=== PATIENT | female | born 1960 | race Caucasian/White ===

== ENCOUNTER 2019-02-19 11:44 | Emergency (ER) | payer OTHER ==
[2019-02-19 12:31] VITALS: BP 108/65
--- NOTE | 2019-02-19 12:42 | UC ---
UC General HPI - HPI Summary HPI Summary: per triage, Urinary urgency, burning and mild lower back pain started . [ End ] no fever, abdominal pain or flank pain. hx uti's with same s/s's. - History of Current Complaint Chief Complaint: UCGU Stated Complaint: URINARY CONCERN Time Seen by Provider: 02/19/19 12:23 Hx Obtained From: Patient Hx Last Menstrual Period: N/A Onset/Duration: Gradual Onset Pain Intensity: 0 - Allergy/Home Medications Allergies/Adverse Reactions: Allergies Allergy/AdvReac Type Severity Reaction Status Date / Time Penicillins AdvReac Intermediate Rash Verified 02/19/19 12:26 PMH/Surg Hx/FS Hx/Imm Hx - Additional Past Medical History Additional PMH: OA - Surgical History Surgical History: Yes Surgery Procedure, Year, and Place: VAGINA RECONSTRUCTION AND OVARIES REMOVED. BLADDER SLING. RECTAL PROLAPSE CORRECTION - Family History Known Family History: Positive: None - Social History Alcohol Use: Occasionally Alcohol Amount: 3-5 drinks Substance Use Type: None Smoking Status (MU): Never Smoked Tobacco - Immunization History Most Recent Tetanus Shot: unsure Review of Systems All Other Systems Reviewed And Are Negative: Yes Constitutional: Negative: Fever Gastrointestinal: Negative: Abdominal Pain, Vomiting, Diarrhea, Nausea Genitourinary: Positive: Dysuria, Hematuria, Frequency, Urgency. Negative: Vaginal/Penile Discharge Physical Exam Triage Information Reviewed: Yes Appearance: Well-Appearing Vital Signs: Initial Vital Signs Temp 99.5 F 02/19/19 12:26 Pulse 78 02/19/19 12:26 Resp 14 02/19/19 12:26 BP 108/65 02/19/19 12:26 Pulse Ox 99 02/19/19 12:26 Vital Signs Reviewed: Yes Eyes: Positive: Conjunctiva Clear Neck: Positive: Supple Respiratory: Positive: Lungs clear Cardiovascular: Positive: RRR Abdomen Description: Positive: Nontender, No Organomegaly, Soft. Negative: CVA Tenderness (R), CVA Tenderness (L) Bowel Sounds: Positive: Present Musculoskeletal: Positive: ROM Intact Neurological: Positive: Alert Psychological: Positive: Age Appropriate Behavior Skin Exam: Normal Diagnostics - Laboratory Lab Results: u/a=protein, blood, leukocytes with culture pending. Course/Dx - Diagnoses Provider Diagnosis: UTI (urinary tract infection) Discharge - Sign-Out/Discharge Documenting (check all that apply): Patient Departure All imaging exams completed and their final reports reviewed: No Studies - Discharge Plan Condition: Stable Disposition: HOME Prescriptions: Nitrofurantoin Monohyd/M-Cryst [Macrobid 100 mg Capsule] 100 mg PO BID 5 Days # 10 cap Patient Education Materials: Urinary Tract Infection in Women (ED) Referrals: Delonte DEAN,Jai Hardy [Primary Care Provider] - 7 Days - Billing Disposition and Condition Condition: STABLE Disposition: Home
--- OUTSIDE RECORDS SUMMARY | 2019-02-19 12:59 | XMS REPORT | Continuity of Care Document ---
:1960 External Reference #:[id number] Author Name Margret Lugo MD Address [address] [place] [address] Care Team Providers Name Role Phone Jai Martel MD Primary Care Physician Unavailable Payers Date Identification Numbers Payment Provider Subscriber Policy Number: [id number] Magdy Worthington Group Number: [id number] PayID: [id number] [place] [address] Problems Active Problems Provider Date Difficulty breathing Jessica Oh MD Onset: 02/01/2017 Obstructive sleep apnea syndrome Tara Packer DNP, RN, Onset: 03/15/2017 DEAL[employer]ATION[employer]IP [employer]NAGER[employer] Hypersomnia Tara Packer DNP, RN, Onset: 03/15/2017 [employer]ATION[employer]IP [employer]GER[employer] Localized, primary osteoarthritis Carey Montague M.D. Onset: 02/26/2018 Localized, primary osteoarthritis of Carey Montague M.D. 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 Tobacco Use Start: Unknown Never Smoked Cigarettes Smoking Status Reviewed: 12/10/18 Never Smoked Cigarettes ETOH Use Currently consumes socially alcohol Tobacco Use Start: Unknown Patient has never smoked Recreational Drug Use Denies Drug Use Exercise Type/Frequency Walks 5 times a week Walks dog, walks at work Exercise Type/Frequency Exercises regularly Allergies, Adverse Reactions, Alerts Active Allergies Reaction Severity Comments Date Penicillin 02/01/2017 Medications Active Medications SIG Qnty Indications Ordering Provider Date Meloxicam Take 1 Tablet By 30tabs M25.462 Carey Montague M.D. 02/26/2018 15mg Tablets Mouth Once Daily Ibuprofen as needed Unknown 200mg Tablets Tramadol HCL 1 po tid Unknown 50mg Tablets Magnesium twice daily Unknown 500mg Capsules Calcium 600+D3 1 by mouth every Unknown day [id number] Tablets History Medications Lidocaine Viscous swish and spit 200ml J20.9 Jed Fontaine, 08/03/2018 - 15cc up to three M.D. 12/09/2018 2% Solution times a day as needed Benzonatate 1-2 tab by mouth 30caps J06.9 Jed Fontaine, 07/30/2018 - 100mg three times a day M.D. 12/09/2018 Capsules as needed Zolpidem Tartrate take one tablet 7tabs G47.00 Tara Packer, 2016 - by mouth at DNP, RN, DEALER RELATIONSHIP MANAGER[employer] 05/06/2018 5mg Tablets bedtime x 3-4 nights, may repeat in one week if needed for inability to fall asleep Minocycline HCL 1 tab po bid as Unknown - needed (pt ran 07/30/2018 100mg Capsules out, will refill 10/25/17) Medications Administered in Office Medication SIG Qnty Indications Ordering Provider Date Depomedrol 40MG Carey Montague M.D. 12/10/2018 Injection Depomedrol 40MG Carey Montague M.D. 12/10/2018 Injection Depomedrol 40MG Carey Montague M.D. 09/07/2018 Injection Eveliaomedrol 40MG Carey Montague M.D. 09/07/2018 Injection Eveliaomedrol 40MG Carey Montague M.D. 06/06/2018 Injection Jennyrol 40MG Carey Montague M.D. 06/06/2018 Injection Jennyrol LENNY Montague M.D. 03/16/2018 Injection Deplizbethrol 40MG Carey Montague M.D. 03/16/2018 Injection Depomedrol 40MG Carey Montague M.D. 03/02/2018 Injection Triamcinolone (Kenalog) Carey Montague M.D. 02/26/2018 Injection Immunizations CPT Code Status Date Vaccine Lot # [id number] Given 07/30/2018 Influenza Virus Vaccine, Quadrivalent, Split, [id number] Preservative Free Vital Signs Date Vital Result Comment 12/10/2018 8:15am Height 66.5 inches 5'6.50" Weight 205.00 lb BP Systolic 100 mmHg BP Diastolic 64 mmHg Body Temperature 97.4 F BMI (Body Mass Index) 32.6 kg/m2 10/17/2018 9:46am Heart Rate 72 /min BP Systolic 122 mmHg BP Diastolic 80 mmHg 09/07/2018 8:19am Height 67 inches 5'7" Weight 225.00 lb BP Systolic 124 mmHg BP Diastolic 84 mmHg Body Temperature 97.5 F BMI (Body Mass Index) 35.2 kg/m2 08/31/2018 10:21am Height 65.5 inches 5'5.50" Weight 230.25 lb Heart Rate 76 /min BP Systolic Sitting 114 mmHg Rue large cuff BP Diastolic Sitting 76 mmHg Rue large cuff Respiratory Rate 18 /min O2 % BldC Oximetry 97 % On Ra BMI (Body Mass Index) 37.7 kg/m2 08/03/2018 11:52am Height 65.5 inches 5'5.50" Weight 227.00 lb Heart Rate 77 /min BP Systolic Sitting 104 mmHg BP Diastolic Sitting 68 mmHg Body Temperature 98.2 F O2 % BldC Oximetry 96 % BMI (Body Mass Index) 37.2 kg/m2 07/30/2018 10:04am Height 65.5 inches 5'5.50" Weight 229.00 lb Heart Rate 84 /min BP Systolic 120 mmHg BP Diastolic 74 mmHg Body Temperature 98.9 F O2 % BldC Oximetry 96 % BMI (Body Mass Index) 37.5 kg/m2 06/06/2018 10:12am Height 66 inches 5'6" Heart Rate 72 /min BP Systolic 128 mmHg BP Diastolic 72 mmHg Body Temperature 97.1 F Pain Level 0 05/07/2018 10:17am Height 66 inches 5'6" Heart Rate 64 /min BP Systolic 124 mmHg BP Diastolic 86 mmHg Body Temperature 97.4 F Pain Level 6 04/20/2018 11:42am Heart Rate 68 /min BP Systolic 128 mmHg BP Diastolic 74 mmHg Pain Level 5 04/06/2018 8:21am Heart Rate 68 /min BP Systolic Sitting 118 mmHg BP Diastolic Sitting 76 mmHg Respiratory Rate 16 /min Pain Level 0 03/16/2018 3:51pm Height 66 inches 5'6" Weight 232.00 lb Heart Rate 73 /min Respiratory Rate 16 /min Pain Level 4 BMI (Body Mass Index) 37.4 kg/m2 03/02/2018 9:46am Height 66 inches 5'6" Weight 232.00 lb BP Systolic 116 mmHg BP Diastolic 74 mmHg Body Temperature 97.9 F BMI (Body Mass Index) 37.4 kg/m2 02/26/2018 8:16am Height 66 inches 5'6" Weight 232.75 lb BP Systolic Sitting 150 mmHg BP Diastolic Sitting 78 mmHg Respiratory Rate 16 /min Body Temperature 98.1 F Pain Level 4 BMI (Body Mass Index) 37.6 kg/m2 01/03/2018 9:55am Height 66 inches 5'6" Weight 232.50 lb Heart Rate 60 /min BP Systolic Sitting 120 mmHg Lue large cuff BP Diastolic Sitting 68 mmHg Lue large cuff Respiratory Rate 16 /min O2 % BldC Oximetry 99 % On Ra BMI (Body Mass Index) 37.5 kg/m2 10/25/2017 8:29am Height 66 inches 5'6" Weight 225.50 lb Heart Rate 68 /min BP Systolic Sitting 114 mmHg Rue large cuff BP Diastolic Sitting 68 mmHg Rue large cuff Respiratory Rate 16 /min O2 % BldC Oximetry 98 % On Ra BMI (Body Mass Index) 36.4 kg/m2 06/26/2017 9:02am Height 66 inches 5'6" Weight 239.00 lb with shoes Heart Rate 88 /min BP Systolic Sitting 114 mmHg Lue large cuff BP Diastolic Sitting 82 mmHg Lue large cuff Respiratory Rate 16 /min O2 % BldC Oximetry 98 % On Ra BMI (Body Mass Index) 38.6 kg/m2 04/26/2017 8:26am Height 66 inches 5'6" Weight 236.00 lb Heart Rate 64 /min BP Systolic Sitting 104 mmHg Lue large cuff BP Diastolic Sitting 72 mmHg Lue large cuff Respiratory Rate 18 /min O2 % BldC Oximetry 98 % On Ra BMI (Body Mass Index) 38.1 kg/m2 03/15/2017 8:29am Height 66 inches 5'6" Weight 236.00 lb Heart Rate 60 /min BP Systolic Sitting 118 mmHg BP Diastolic Sitting 80 mmHg Respiratory Rate 14 /min O2 % BldC Oximetry 98 % BMI (Body Mass Index) 38.1 kg/m2 02/01/2017 12:59pm Height 66 inches 5'6" Weight 236.00 lb Heart Rate 74 /min BP Systolic Sitting 100 mmHg BP Diastolic Sitting 70 mmHg Respiratory Rate 14 /min O2 % BldC Oximetry 99 % room air BMI (Body Mass Index) 38.1 kg/m2 Neck Circumference in inches 14.5 Results Test Date Facility Test Result H/L Range Note Xray 11/12/2018 [facility] SP Cervical 2-3 VWS <pending> [address] [place] [address] [phone] SP Lumbar Ap//Lat 2-3 Views <pending> Procedures Date Code Description Status 12/10/201829968 Inject/Drain Joint/Bursa Major W/O US Completed 09/07/2018 45139 Inject/Drain Joint/Bursa Major W/O US Completed 06/06/201855469 Inject/Drain Joint/Bursa Major W/O US Completed 03/16/2018 63989 Inj/Aspir Major JT Or Bursa W/ US Completed 03/02/201818367 Inject/Drain Joint/Bursa Major W/O US Completed 02/26/201819215 Inject/Drain Joint/Bursa Major W/O US Completed 03/13/2017 62357 Polysomnography Sleep Staging 4+ Parameters Completed Encounters Type Date Location Provider Dx Diagnosis Office Visit 12/10/2018 Orthopedic Carey Montague, M25.562 Pain in left knee 8:00a Services Of Noel Johnson M25.561 Pain in right knee M25.461 Effusion, right knee M25.462 Effusion, left knee M17.0 Bilateral primary osteoarthritis of knee Office Visit 12/05/2018 8:30a Sports Medicine Of Jon Valera4.5 Low back pain [employer] [facility] M54.2 Cervicalgia Office Visit 10/17/2018 9:10a [facility] Of Frieda Valera Low back pain [employer] [facility] M54.2 Cervicalgia Office Visit 08/31/2018 Pulmonology And Tara G47.33 Obstructive sleep 10:30a Sleep Services Of KELVIN Packer, RN, apnea (adult) [facility] DEAL[employer]ATIONSHIP MANAGER[employer] (pediatric) Z68.37 Body mass index (BMI) 37.0-37.9, adult Office Visit 08/03/2018 Ale [facility] Internal Jed Marques J20.9 Acute 11:40a Medicine-Fadumo Fontaine M.D. bronchitis, unspecified Office Visit 07/30/2018 Ale [facility] Internal Jed Marques J06.9 Acute upper 10:20a Medicine-Fadumo Fontaine M.D. respiratory infection, unspecified Z23 Encounter for immunization Office Visit 05/07/2018 9:45a Orthopedic Services Carey Montague, M25.562 Pain in left Of C.M.A. M.D. knee M25.551 Pain in right hip M16.0 Bilateral primary osteoarthritis of hip M17.11 Unilateral primary osteoarthritis, right knee M17.12 Unilateral primary osteoarthritis, left knee Office Visit 04/20/2018 11:15a Orthopedic Services Carey Montague, M25.562 Pain in left Of C.M.A. M.D. knee M25.551 Pain in right hip M25.552 Pain in left hip M16.0 Bilateral primary osteoarthritis of hip M17.11 Unilateral primary osteoarthritis, right knee M17.12 Unilateral primary osteoarthritis, left knee Office Visit 04/06/2018 8:15a Orthopedic Services Carey Montague, M25.551 Pain in right Of C.M.A. M.D. hip M25.552 Pain in left hip M16.0 Bilateral primary osteoarthritis of hip M25.562 Pain in left knee M25.461 Effusion, right knee M17.11 Unilateral primary osteoarthritis, right knee M25.462 Effusion, left knee M17.12 Unilateral primary osteoarthritis, left knee M25.561 Pain in right knee Office Visit 03/02/2018 9:30a Orthopedic Services Carey Montague M25.562 Pain in left Of C.M.A. M.D. knee M25.461 Effusion, right knee M17.11 Unilateral primary osteoarthritis, right knee M25.551 Pain in right hip Office Visit 02/26/2018 8:00a Orthopedic Services Carey Montague, M25.562 Pain in left Of C.M.A. M.D. knee M25.462 Effusion, left knee M17.12 Unilateral primary osteoarthritis, left knee M25.551 Pain in right hip M25.552 Pain in left hip M16.12 Unilateral primary osteoarthritis, left hip M16.11 Unilateral primary osteoarthritis, right hip Z68.36 Body mass index (BMI) 36.0-36.9, adult Office Visit 01/03/2018 Pulmonology And Tara G47.33 Obstructive sleep 9:30a Sleep [facility] Of KELVIN Packer RN, apnea (adult) [facility] DEALER RELATIONSHIP MANAGER-BC (pediatric) Z68.36 Body mass index (BMI) 36.0-36.9, adult Office Visit 10/25/2017 Pulmonology And Tara G47.33 Obstructive sleep 8:15a Sleep Services Of KELVIN Packer RN, apnea (adult) [facility] DEALER RELATIONSHIP MANAGER[employer]BC (pediatric) G47.00 Insomnia, unspecified Z68.36 Body mass index (BMI) 36.0-36.9, adult Office Visit 06/26/2017 Pulmonology And Tara G47.33 Obstructive sleep 9:00a Sleep Services Of KELVIN Packer RN, apnea (adult) [facility] DEALER RELATIONSHIP MANAGER-BC (pediatric) G47.00 Insomnia, unspecified G47.14 Hypersomnia due to medical condition Office Visit 04/26/2017 Pulmonology And Tara G47.33 Obstructive sleep 8:15a Sleep Services Of KELVIN Packer RN, apnea (adult) [facility] DEALER RELATIONSHIP MANAGER-BC (pediatric) G47.14 Hypersomnia due to medical condition Z68.38 Body mass index (BMI) 38.0-38.9, adult Office Visit 03/15/2017 Pulmonology And Tara G47.33 Obstructive sleep 8:15a Sleep Services Of KELVIN Packer RN, apnea (adult) [facility] DEALER RELATIONSHIP MANAGER[employer]BC (pediatric) G47.14 Hypersomnia due to medical condition E66.9 Obesity, unspecified Z68.38 Body mass index (BMI) 38.0-38.9, adult Office Visit 02/01/2017 12:30p Pulmonology And Sleep Jessica Oh R06.83 Snoring Services Of Rick DEAN R06.81 Apnea, not elsewhere classified R40.0 Somnolence 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 at [facility]..02/25/2019 9:45 am - Tara Packer DNP, RN, DEALER RELATIONSHIP MANAGER- at [facility]ology [facility]03/15/2019 8:30 am - Carey Montague M.D. at [facility]..12/10/2018 - Carey Montague M.D.M25.562 Pain in left kneeFollow up:Follow up: 7-10 days before wulxhzsF13.561 Pain in right kneeM25.461 Effusion, right kneeM25.462 Effusion, left kneeM17.0 Bilateral primary osteoarthritis of knee
--- OUTSIDE RECORDS SUMMARY | 2019-02-19 12:59 | XMS REPORT | Continuity of Care Document ---
:1960 Author Organization [facility] Care Team Providers Name Role Phone DEMARCUS SNEED Admitting Physician DEMARCUS SNEED Attending Physician UNKNOWN, UNKNOWN Primary Care Physician Unavailable Allergies and Intolerances No Allergy Data in the System Medications No Known Medications Problems No Data in the system Procedures No data in the system Results Microbiology Results w Susceptibilities Order: CULTURE WOUND- TISSUE-DRAINAGE Specimen Source: Swab Body Site: Entire axillary fossaDirect Exam:Rare [id number] were not [id number] Observations:Mixed growth consistent with skin gus [id number] screen test ctilcvoh2Skeegto #1: 1Acinetobacter spp (Few)Susceptibility: LOINC Code Drug Interpretation Result Date 141-2 1Ceftriaxone SS 8 01/30/2019 2:29:00 PM 267-5 1Gentamicin SS <=1 01/30/2019 2:29:00 PM 185-9 1Ciprofloxacin SS 0.5 01/30/2019 2:29:00 PM 55967-7 1Levofloxacin SS 0.5 01/30/2019 2:29:00 PM 516-5 1Trimethoprim/Sulfa SS <=20 01/30/2019 2:29:00 methoxazole PM Isolate #2:1Staphylococcus lugdunensis (Few)Staphylococcus lugdunensis is recognized as an aggressive pathogen whoseclinical course is similar to Staphylococcus aureus.Susceptibility : LOINC Code Drug Interpretation Result Date 383-0 1Oxacillin SS 0.5 01/30/2019 2:29:00 PM 233-7 1Erythromycin R >=8 01/30/2019 2:29:00 PM 193-3 1Clindamycin R >=8 01/30/2019 2:29:00 PM 496-0 1Tetracycline R >=16 01/30/2019 2:29:00 PM 516-5 1Trimethoprim/Sulfa SS <=10 01/30/2019 2:29:00 methoxazole PM Notes: 1Oxacillin susceptible Staphylococcus sp are resistant to penicillinase labile 1penicillins but susceptible to first generation oral cephalosporins. 1Intermediate or resistant strains to tetracycline may be susceptible to 1doxycycline or minocycline or both. Susceptiblity studies to these agents can be 1requested if needed for treatment. Performing Lab Footnotes:[facility] - [id number] - [address] [place] [address] CINDY MILIANOMD1 Social History Code Code System Social History Description Dates Observed Observation [id number] SNOMED CT Current Smoking Unknown if ever Status smoked UNK AdministrativeGender Sex Assigned At Unknown Vital Signs No data in the system Goals Section No data in the system Health Concerns No data in the systemEncounter Diagnosis Date Code Code System Diagnosis Status D48.5 ICD10 NEOPLASM UNCERTAIN BEHAVIOR OF SKIN Active Advance Directives No Data in the System Family History No data in the system Functional Status No data in the system Immunizations No data in the system Medical Equipment No data in the system Mental Status No data in the system Assessment and Plan Assessments No data in the systemPlan Of Treatment No data in the systemPending Tests No data in the system Hospital Discharge Instructions No data in the system Reason for Visit No data in the system
== END 2019-02-19 12:48 | disposition home or self-care (01) ==
LOC: UCCORT 11:44
DX: N39.0 Urinary tract infection, site not specified (principal); Z88.0 Allergy status to penicillin
CPT/HCPCS: 81003; 87077; 87086; 87186; 99212; G0463

== ENCOUNTER 2019-03-28 06:12 | Inpatient (IN) | payer OTHER ==
--- NOTE | 2019-03-17 17:58 | HP ---
PREOPERATIVE HISTORY AND PHYSICAL: DATE OF ADMISSION/SURGERY: 03/28/19 SURGEON: Dr. Carey Montague.* (DICTATED BY MARIANA WHITNEY) PROCEDURE: Left total knee replacement. CHIEF COMPLAINT: Left knee pain. HISTORY OF PRESENT ILLNESS: Ms. Worthington is a 58-year-old female with a long history of knee pain with advanced arthritis in the knee. She has difficulty with walking even half a block without severe pain and has tried conservative treatments like physical therapy, steroid injections, Synvisc, anti- inflammatories, weight loss, and pain pills without relief. She is seeking surgical intervention with Dr. Montague at this time. PAST MEDICAL HISTORY: Significant for morbid obesity, hypercholesterolemia, plantar fasciitis, chronic neck pain, sleep apnea, chronic pain syndrome, constipation, diarrhea, and hyperlipidemia. No DVT or pulmonary embolus. PAST SURGICAL HISTORY: Oophorectomy, vaginal prolapse surgery, rectal prolapse surgery, and bladder sling. She denies anesthetic complications with these procedures. CURRENT MEDICATIONS: 1. Ibuprofen mg one tab p.o. as needed. 2. Tramadol HCl 50 mg 1 tab p.o. 3 times daily as needed for pain. ALLERGIES: PENICILLIN that caused a childhood rash. FAMILY HISTORY: Cancer. 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 She denies tobacco or recreational drug use and rarely consumes alcohol. She is normally very active. REVIEW OF SYSTEMS: A 14-point review of systems were reviewed with the patient and are positive for bilateral knee pain, back pain, and neck pain. Otherwise, review of systems is negative. PHYSICAL EXAMINATION GENERAL: She is a well-developed, well-nourished female, seated on exam chair, in no acute distress, with appropriate affect. VITAL SIGNS: Height 66.5 inches, weight 212. Pulse 72, blood pressure 124/72, respirations 12. HEENT: Normocephalic, atraumatic. Hearing and vision are grossly intact with extraocular movements intact. NECK: The trachea is midline and symmetrical. CHEST: Lungs are clear to auscultation. No wheezes, rales, or rhonchi appreciated. ABDOMEN: Nondistended. Bowel sounds present. GENITOURINARY: Deferred. MUSCULOSKELETAL: Left lower extremity: Skin is pink, dry, and intact without abrasions or open wounds. Moderate effusion is appreciated. There is tenderness along the medial joint line without varus or valgus instability. She extends the knee to 10 degrees, flexes to 120 with patellofemoral crepitus. She has 5/5 strength against resistance in 4 planes in the ankle with sensation intact and 2+ dorsalis pedis pulse. IMAGING: Multiple views of the left knee performed previously showed bone-on- bone contact in the patellofemoral compartment as well as tricompartmental joint space narrowing, osteophyte formation, and subchondral sclerosis. ASSESSMENT: Severe left knee osteoarthritis. PLAN: Left total knee replacement with Dr. Montague. The patient's questions were answered and she would like to proceed. Dr. Montague discussed the risks and benefits of the surgery at today's visit. The patient will follow up postoperatively. MARIANA WHITNEY [id number]/[facility] #: [id number] GIANA
[~2019-03-28 06:12] MED LIST: Acetaminophen TAB* 325 MG PO ONE; Buffered Lidocaine 1% SYRIN* 1 ML/SYRINGE INTRADERM ONE; Dexamethasone TAB* 4 MG PO ONE; Famotidine IV* 10 MG/ML 2 ML (20 mg) IV ONE; Gabapentin CAP(*) 300 MG PO ONE; Lactated Ringers 1000 ML Bag* 1,000 ML IV SCH; Ondansetron ODT TAB* 4 MG PO ONE; Tranexamic Acid 1,000 MG in NS 0.9% 50 ML* (outpatient use) IV SCH; celeCOXIB CAP* 200 MG PO ONE
--- OUTSIDE RECORDS SUMMARY | 2019-03-28 06:15 | XMS REPORT | Continuity of Care Document ---
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 Onset: 02/26/2018 Localized, primary osteoarthritis of Carey Montague M.D. Onset: 02/26/2018 the pelvic region and thigh Social History Type Date Description Comments Sex Unknown Tobacco Use Start: Unknown Never Smoked Cigarettes Smoking Status Reviewed: 02/25/19 Never Smoked Cigarettes ETOH Use Currently consumes [...] 600+D3 1 by mouth every Unknown day [id number] Tablets Medications Administered in Office Medication SIG Qnty Indications Ordering Provider Date Depomedrol 40MG Carey Montague M.D. 12/10/2018 Injection Depomedrol 40MG Carey Montague M.D. 12/10/2018 Injection Depomedrol 40MG Carey Montague M.D. 09/07/2018 Injection Depomedrol 40MG Carey Montague M.D. 09/07/2018 Injection Depomedrol 40MG Carey Montague M.D. 06/06/2018 Injection Depomedrol 40MG Carey Montague M.D. 06/06/2018 Injection Depomedrol 40MG Carey Montague M.D. 03/16/2018 Injection Depomedrol 40MG Carey Montague M.D. 03/16/2018 Injection Depomedrol 40MG Carey Montague M.D. 03/02/2018 Injection Triamcinolone (Kenalog) Carey Montague M.D. 02/26/2018 Injection Immunizations CPT Code Status Date Vaccine Lot # [id number] Given 07/30/2018 Influenza Virus Vaccine, Quadrivalent, Split, [id number] Preservative Free Vital Signs Date Vital Result Comment 02/25/2019 9:44am Height 66.5 inches 5'6.50" Weight 216.00 lb Heart Rate 70 /min BP Systolic Sitting 110 mmHg Lue large cuff BP Diastolic Sitting 68 mmHg Lue large cuff Respiratory Rate 16 /min O2 % BldC Oximetry 99 % BMI (Body Mass Index) 34.3 kg/m2 12/10/2018 8:15am Height 66.5 inches 5'6.50" Weight 205.00 lb BP Systolic 100 mmHg BP Diastolic 64 mmHg Body Temperature 97.4 F BMI (Body Mass Index) 32.6 kg/m2 Results Test Date Facility Test Result H/L Range Note Urine Culture And 02/19/2019 [facility] Urine Culture SEE RESULT 1, [address] [place] [address] [phone] Xray 11/12/2018 [facility] SP Cervical <pending> [address] 2-3 [place] [address] [phone] SP Lumbar Ap//Lat 2-3 Views <pending> 1 [id number] 2 SEE RESULT BELOW Name: ROBYN PARADA : [address]: Jose Lambert MD Acct: [id number] Unit: [id number] AGE: 58 Location: [facility] Re02/19/19 SEX: F Status: DEP ER SPEC: [id number] GEE: 02/19/19-[address] [facility] [address]: Shaunna PEÑA REQ: [id number] RECD: 02/19/19 STATUS: GILBERT GONG DR: Jose Martel MD _ SOURCE: URINE SPDESC: ORDERED: Urine Culture COMMENTS: [id number] Procedure Result Reported Site Urine Culture Final 02/21/19- 0814 ML Organism 1 ESCHERICHIA COLI [place] Count 10-25,000 (Moderate) CFU/ML 1. ESCHERICHIA COLI M.I.C. RX --------- ------ Ampicillin 8 S Cefazolin <=4 S Cefepime <=1 S Ceftriaxone <=1 S Ciprofloxacin <=0.25 S Gentamicin <=1 S Levofloxacin <=0.12 S Meropenem <=0.25 S Nitrofurantoin <=16 S Tetracycline 2 S Pipercillin/Tazobactam <=4 S Trimethoprim/Sulfamethoxazole <=20 S Amoxicillin/Clavulanic Acid 4 S Aztreonam <=1 S Contact the Microbiology Department for any additional antibiotic reporting. * [facility] - Main Lab . END OF REPORT DEPARTMENT OF PATHOLOGY, [address] [place] [address] Anant Salazar M.D. Director [facility] # [id number] Procedures Date Code Description Status 12/10/201879442 Inject/Drain Joint/Bursa Major W/O US Completed 09/07/2018 Inject/Drain Joint/Bursa Major W/O US Completed Medical Devices Description No Information Available Encounters Type Date Location Provider Dx Diagnosis Office Visit 02/06/2019 [facility] Lugo MD M54.5 Low back pain 8:30a [employer] [facility] [place] M54.2 Cervicalgia Office Visit 12/10/2018 8:00a Orthopedic Services Carey Montague, M25.562 Pain in left Of C.M.A. M.D. knee M25.561 Pain in right knee M25.461 Effusion, right knee M25.462 Effusion, left knee M17.0 Bilateral primary osteoarthritis of knee Office Visit 12/05/2018 8:30a [facility] Mao Valera.Yara Low back pain [employer] [facility] [place] M54.2 Cervicalgia Office Visit 10/17/2018 9:10a [facility] Of Jon Valera4.Yara Low back pain [employer] [facility] [place] M54.2 Cervicalgia Office Visit 08/31/2018 Pulmonology And Tara G47.33 Obstructive sleep 10:30a [facility] Packer, RN, apnea (adult) [facility] TASSEL CLIPPER-BC (pediatric) Z68.37 Body mass index (BMI) 37.0-37.9, adult Assessments Date Code Description Provider 02/25/2019 G47.33 Obstructive sleep apnea (adult) Tara Packer DNP, RN, (pediatric) TASSEL CLIPPER-BC 02/06/2019 M54.5 Low back pain Margret Lugo MD 02/06/2019 M54.2 Cervicalgia Margret Lugo MD 12/10/2018 M25.562 Pain in left knee Carey Montague M.D. 12/10/2018 M25.561 Pain in right knee Carey Montague M.D. 12/10/2018 M25.461 Effusion, right knee Carey Montague M.D. 12/10/2018 M25.462 Effusion, left knee Carey Montague M.D. 12/10/2018 M17.0 Bilateral primary osteoarthritis of Carey Montague M.D. knee 12/05/2018 M54.5 Low back pain Margret Lugo MD 12/05/2018 M54.2 Cervicalgia Margret Lugo MD 10/17/2018 M54.5 Low back pain Margret Lugo MD 10/17/2018 M54.2 Bushra Lugo MD 09/07/2018 M25.562 Pain in left knee Carey Montague M.D. 09/07/2018 M25.561 Pain in right knee Carey Montague M.D. 09/07/2018 M25.462 Effusion, left knee Carey Montague M.D. 09/07/2018 M25.461 Effusion, right knee Carey Montague M.D. 09/07/2018 M17.0 Bilateral primary osteoarthritis of Carey Montague M.D. knee 08/31/2018 G47.33 Obstructive sleep apnea (adult) Tara Packer DNP, RN, (pediatric) TASSEL CLIPPER- 08/31/2018 Z68.37 Body mass index (BMI) 37.0-37.9, Tara Packer DNP, RN, adult TASSEL CLIPPER- Plan of Treatment Future Appointment(s):08/28/2019 9:45 am - Tara Packer DNP, RN, TASSEL CLIPPER-BC at [facility]03/28/2019 7:30 am - Carey Montague M.D. at [facility].03/15/2019 8:30 am - Carey Montague M.D. at [facility]02/25/2019 - Tara Packer DNP, RN, TASSEL CLIPPER- BCG47.33 Obstructive sleep apnea (adult) (pediatric)Follow up:6 monthsRecommendations:Continue PAP device, Benefitting and compliant with treatment. Need to increase use of CPAP to adjust pressure to 5-10 cm due to weight loss and pressure problems, call if your AHI goes above 5/hour. Cleaning Wipe off mask daily (baby wipe-no scent, or warm water) Clean mask, tubing, filter, and waterchamber weekly in mild no scent dish soap and water. Hang to dry. If you have any sleepiness while driving you MUST avoid operating a vehicle or machinery. If you have difficulty with your equipment, or need to replace your mask or hoses, please contact your homecare agency. A weight change of 20 pounds or more may have an effect on your equipment; if you are experiencing problems please call for an appointment. BMI now 34, continue with weight loss efforts If you have any further questions, please call the [facility] at [phone]. Functional Status Description No Information Available Mental Status Description No Information Available Referrals Description No Information Available
--- OUTSIDE RECORDS SUMMARY | 2019-03-28 06:15 | XMS REPORT | Continuity of Care Document ---
:1960 External Reference #:[id number] Author Name Carey Montague M.D. 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 Onset: 02/26/2018 Localized, primary osteoarthritis of Carey Montague M.D. Onset: 02/26/2018 the pelvic region and thigh Social History Type Date Description Comments Sex Unknown Tobacco Use Start: Unknown Never Smoked Cigarettes Smoking Status Reviewed: 03/15/19 Never Smoked Cigarettes ETOH Use Currently consumes socially alcohol Tobacco Use Start: Unknown Patient has never smoked Recreational Drug Use Denies Drug Use Exercise Type/Frequency Walks 5 times a week Walks dog, walks at work Exercise Type/Frequency Exercises regularly Allergies, Adverse Reactions, Alerts Active Allergies Reaction Severity Comments Date Penicillin 02/01/2017 Medications Active Medications SIG Qnty Indications Ordering Provider Date Ibuprofen as needed Unknown 200mg Tablets Tramadol HCL 1 po tid Unknown 50mg Tablets Medications Administered in Office Medication SIG [...] CPT Code Status Date Vaccine Lot # [id number] Given 07/30/2018 Influenza Virus Vaccine, Quadrivalent, Split, 74BL5 Preservative Free Vital Signs Date Vital Result Comment 03/15/2019 8:42am Height 66.5 inches 5'6.50" Weight 212.00 lb Heart Rate 72 /min BP Systolic 124 mmHg BP Diastolic 72 mmHg Respiratory Rate 12 /min Pain Level 5 BMI (Body Mass Index) 33.7 kg/m2 02/25/2019 9:44am Height 66.5 inches 5'6.50" Weight 216.00 lb Heart Rate 70 /min BP Systolic Sitting 110 mmHg Lue large cuff BP Diastolic Sitting 68 mmHg Lue large cuff Respiratory Rate 16 /min O2 % BldC Oximetry 99 % BMI (Body Mass Index) 34.3 kg/m2 Results Test Date Facility Test Result H/L Range Note Urine Culture And 02/19/2019 [facility] Urine Culture SEE RESULT 1, [address] [place] [address] [phone] Xray 11/12/2018 [facility] SP Cervical <pending> [address] 2-[address] [place] [address] [phone] SP Lumbar Ap//Lat 2-3 Views <pending> 1 [id number] 2 SEE RESULT BELOW Name: ROBYN PARADA : [address]: Jose Lambert MD Acct: [id number] Unit: [id number] AGE: 58 Location: [facility] Re02/19/19 SEX: F Status: DEP ER SPEC: [id number] GEE: 02/19/19-[address] [facility] [address]: Shaunna PEÑA REQ: [id number] RECD: 02/19/19 STATUS: GILBERT GONG DR: Jose Martel MD _ SOURCE: URINE SPDESC: ORDERED: Urine Culture COMMENTS: [id number] Procedure Result Reported Site Urine Culture Final 02/21/19- 0814 ML Organism 1 ESCHERICHIA COLI [place] Count 10-25,000 (Moderate) CFU/ML 1. ESCHERICHIA COLI [...] . END OF REPORT DEPARTMENT OF PATHOLOGY, [address] [place] [address] Anant Salazar M.D. 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 M.D. knee M25.561 Pain in right knee M25.461 Effusion, right knee M25.462 Effusion, left knee M17.0 Bilateral primary osteoarthritis of knee Office Visit 12/05/2018 8:30a [facility] Margret Lugo M54.Yara Low back pain Business Services Analyst AT [facility] M54.2 Cervicalgia Office Visit 10/17/2018 9:10a [facility] Mao Valera.Yara Low back pain Business Services Analyst AT [facility] M54.2 Cervicalgia Assessments Date Code Description Provider 03/15/2019 M25.562 Pain in left knee Carey Montague M.D. 03/15/2019 M25.561 Pain in right knee Carey Mnotague M.D. 03/15/2019 M25.462 Effusion, left knee Carey Montague M.D. 03/15/2019 M25.461 Effusion, right knee Carey Montague M.D. 03/15/2019 M17.0 Bilateral primary osteoarthritis of Carey Montague M.D. knee 02/25/2019 G47.33 Obstructive sleep apnea (adult) Tara Packer DNP, RN, (pediatric) [facility]- 02/06/2019 M54.5 Low back pain Margret Lugo [...] back pain Margret Lugo MD 10/17/2018 M54.2 Cervicalparag Lugo MD Plan of Treatment Future Appointment(s):04/08/2019 9:45 am - Carey Montague M.D. at [facility]03/28/2019 7:45 am - TEODORO Hernandez at [facility]03/28/2019 7:45 am - TEODORO Hilliard at Orthopedic Services [facility]08/28/2019 9:45 am - Tara Packer DNP, RN, RUBBER TUBING BACKER -BC at Pul[facility]ology [facility]03/28/2019 7:45 am - Carey Montague M.D. at [facility]03/15/2019 - Carey Montague M.D.M25.562 Pain in left kneeFollow up:Follow up: 10-14 days ojevgbO74.561 Pain in right kneeM25.462 Effusion, left kneeM25.461 Effusion, right kneeFollow up:Follow up: 10-14 days nwdoakL25.0 Bilateral primary osteoarthritis of knee Functional Status Description No Information Available Mental Status Description No Information Available Referrals Description No Information Available
[2019-03-28] MEDS ORDERED: fentaNYL* 50 MCG/ML 2 ML VIAL (100 MCG VIAL) IV PRN (06:51)
[2019-03-28] MEDS ORDERED: Naloxone* 0.4 MG/ML 1 ML VIAL IV PRN (06:51)
[2019-03-28] MEDS ORDERED: oxyCODONE TAB* 5 MG TAB PO PRN (06:51)
[2019-03-28] MEDS ORDERED: Scopolamine 1.5 mg* PATCH TRANSDERM PRN (06:51)
[2019-03-28] MEDS ORDERED: PROCHLORPERAZINE INJ 5 MG/ML 2 ML VIAL IV PRN (06:51)
[2019-03-28] MEDS ORDERED: DiMENhydriNATE IV* 50 MG/ML VIAL IV PUSH PRN (06:51)
[2019-03-28] MEDS ORDERED: HYDROmorphone INJ1* 1 MG/ML SYRINGE IV PRN (06:51)
[2019-03-28] MEDS ORDERED: Ondansetron ODT TAB* 4 MG ONE (06:54)
[2019-03-28] MEDS ORDERED: Gabapentin CAP(*) 300 MG ONE (06:54)
[2019-03-28] MEDS ORDERED: Acetaminophen TAB* 325 MG ONE (06:54)
[2019-03-28] MEDS ORDERED: Dexamethasone TAB* 4 MG ONE (06:54)
[2019-03-28] MEDS ORDERED: Clindamycin 900 MG/D5W BAG(*) 900 MG/50 ML BAG IVPB ONE (06:55)
[2019-03-28] MEDS ORDERED: Famotidine IV* 10 MG/ML 2 ML (20 mg) ONE (06:55)
[2019-03-28] MEDS ORDERED: Buffered Lidocaine 1% SYRIN* 1 ML/SYRINGE INTRADERM ONE (06:55)
[2019-03-28] MEDS ORDERED: celeCOXIB CAP* 200 MG ONE (06:55)
[2019-03-28] MEDS ORDERED: ROPIVACAINE 5 MG/ML 30 ML BTL (0.5%) ONE (07:10)
[2019-03-28] MEDS ORDERED: fentaNYL* 50 MCG/ML 2 ML VIAL (100 MCG VIAL) ONE (07:14)
[2019-03-28] MEDS ORDERED: KETAMINE HCL* 50 MG/ML 10 ML VIAL ONE (07:14)
[2019-03-28] MEDS ORDERED: Midazolam* 1 MG/ML 10 ML VIAL (10 MG) ONE (07:14)
[2019-03-28] MEDS ORDERED: Bupivacaine 0.5%* 50 ML MDV VIAL ONE (07:20)
[2019-03-28] MEDS ORDERED: Propofol* 500 MG/50 ML BTL ONE (10:35)
[2019-03-28] MEDS ORDERED: Phenylephrine 10 MG/ML VIAL* 1 ML VIAL ONE (10:35)
[2019-03-28] MEDS ORDERED: Propofol* 10 MG/ML 20 ML BTL ONE (10:36)
[2019-03-28] MEDS ORDERED: EPHEDrine (Pressors)* 50 MG/ML VIAL ONE (10:36)
[2019-03-28] MEDS ORDERED: Ketorolac INJ* 30 MG/ML 1 ML VIAL ONE (10:36)
[2019-03-28] MEDS ORDERED: Bupivacaine 0.5% SDV PF* 30ML VIAL ONE (10:36)
[2019-03-28] MEDS ORDERED: Lidocaine 2% PF * 5 ML VIAL ONE (10:36)
[2019-03-28] MEDS ORDERED: oxyCODONE/Acetamin 5/325 MG* TAB PO PRN (11:07)
[2019-03-28] MEDS ORDERED: traZODone TAB* 50 MG TAB PO PRN (11:07)
[2019-03-28] MEDS ORDERED: diPHENhydraMINE IV* 50 MG/ML 1 ml VIAL (BENADRYL) IV PRN (11:07)
[2019-03-28] MEDS ORDERED: Ondansetron INJ* 2 MG/ML VIAL IV PRN (11:07)
[2019-03-28] MEDS ORDERED: Ondansetron ODT TAB* 4 MG PO PRN (11:07)
[2019-03-28] MEDS ORDERED: Polyethylene Glycol 3350* 17 GM PACKET PO PRN (11:07)
[2019-03-28] MEDS ORDERED: Magnesium Hydroxide LIQ* 30 ML UDC PO PRN (11:07)
[2019-03-28] MEDS ORDERED: diPHENhydraMINE PO* 25 MG PO PRN (11:07)
[2019-03-28] MEDS: Lactated Ringers 1000 ML Bag* 1,000 ML IV SCH ×2 (12:47→23:20)
[2019-03-28] MEDS ORDERED: oxyCODONE/Acetamin 5/325 MG* TAB ONE (13:01)
[2019-03-28] MEDS: traMADol TAB* 50 MG PO SCH ×2 (13:09→19:01)
--- NOTE | 2019-03-28 13:09 | PN ---
Progress Note - Progress Note Date of Service: 03/28/19 Note: Patient seen at bedside in her room, she is alert and oriented. She denies SOB , dizziness or nausea. She has minimal pain in the left knee. Dressings are dry and intact left LE. She has active DF left ankle. Sensation and circulation are intact s/p LTK arthroplasty.
[2019-03-28] MEDS: Acetaminophen TAB* 325 MG PO SCH ×2 (14:33→21:58)
[2019-03-28] MEDS: oxyCODONE TAB* 5 MG TAB PO PRN ×2 (15:03→19:26)
[2019-03-28] MEDS ORDERED: Clindamycin 600 MG IVPREMIX(* 600 MG/50 ML SDV IV SCH (16:00)
--- NOTE | 2019-03-28 16:04 | CONSULT ---
Consult Consult: HOSPITALIST CONSULT Requesting Provider: Dr. Montague Reason for Consultation: near syncope HPI: Ms Worthington is a 58 yo F who has a h/o HLD recently started on lipitor, who underwent elective L total knee arthroplasty. She has failed conservative management. She was getting up to the chair from bed and was straining. She suddenly felt very lightheaded and like she may pass out. When she got into the chair her HR was obtained and was found to be slow and irregular. At the time of my evaluation, minutes after the event, she was still feeling slightly lightheaded. She states the florescent lights were bothering her. PMHx: HLD, OA, obesity, GALINA PSHx: oophrectomy, vaginal prolapse, rectal prolapse and bladder sling surgery All: PCN Meds: Home and current in hospital medications reviewed. FamHx: positive for cancer and otherwise negative. SocHx: pt is a non-smoker, drinks EtOH on rare occasion. 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 Pt has 2 kids. ROS: No CP, palpitation, SOB. No nausea or vomiting with the above event. Rest of 11 system review of systems is negative. PE: BP 99/20 HR 41 T 97.8 gen: middle aged female sitting up in chair, NAD HEENT: orpharynx moist, EOMI Card: nl S1S2 HR is bradycardic (estimated in the 50's) and regular, no LE edema Lungs: CTA B/L Abd: BS + soft, NT, ND Musculo: L knee in post op dressing. Skin: warm and dry Neuro: non focal neuro exam Psych: A+Ox3 A/P: Ms Worthington is a 58 yo F who has a h/o HLD and GALINA who is POD#0 from elective L total knee arthroplasty who had a near syncopal episode. 1. Near syncope: I suspect this was a vagal event as the patient states she was straining her core while trying to get up. She was slightly hypotensive and bradycardic in addition to lightheaded. Will place pt on tele overnight to monitor. Continue post-op fluids that are already ordered. 2. HLD: Resume lipitor 10mg qHS. 3. GALINA: Order pt to use own CPAP. 4. L total knee arthroplasty: management per orthopedics. 5. DVT-P: to start eliquis AM 03/29/19. 6. Full code
[2019-03-28] MEDS ORDERED: Clindamycin 600 MG/D5W BAG(*) 600 MG/50 ML BAG IV SCH (16:38)
[2019-03-28] MEDS: Clindamycin 600 MG/D5W BAG(*) 600 MG/50 ML BAG IV SCH (16:44)
[2019-03-28] MEDS: oxyCODONE/Acetamin 5/325 MG* TAB PO PRN ×2 (17:04→21:56)
--- NOTE | 2019-03-28 18:01 | OP ---
Operative Report - Blank - Operative Report Date of Operation: 03/28/19 Note: ROBYN PARADA 1960 Date of Surgery: 03/28/19 Carey Montague MD Residential Leasing Manager: Daisy PEÑA did help throughout the procedure with preparation of the knee, wound retraction, manipulation of the knee, and wound closure. Anesthesiologist: Mykel DEAN Anesthesia Type: Spinal Preoperative Diagnosis: Left severe degenerative osteoarthritis of the knee Postoperative Diagnosis: As above Procedure Performed: Left Total Knee Arthroplasty Tourniquet time: 67 minutes Complications: None Specimen: Bone and cartilage from the left knee joint sent to pathology. Hardware Used: Cemented Tang and Nephew total knee hardware was used - For the femur a size 6 narrow left oxinium legion posterior stabilized femoral component , for the tibia a size 5 left butch II tibial baseplate, for the insert a size 9mm 5-6 posterior stabilized articular polyethylene insert, and for the patella a size 35 3-peg all poly patella. Brief History/Indication: ROBYN PARADA was known in clinic and had a history of severe left knee pain and swelling. She failed conservative treatment with anti-inflammatories, pain pills, intra-articular injections and physical therapy. She elected to undergo left total knee arthroplasty due to continued pain and decreased quality of life. Radiographs showed severe end stage osteoarthritis of the knee with bone on bone contact. Informed consent was obtained from the patient. She understood the risks of surgery included but were not limited to: bleeding, infection, damage to nearby structures, intraoperative fracture, nerve palsy, failure of the hardware, early loosening, knee stiffness or loss of motion, anesthesia complications, stroke, heart attack , blood clot and . She wished to proceed. Intra-Operative Findings: Intraoperatively the patient was noted to have severe loss of cartilage in all 3 compartments of the knee. Description of the Procedure: ROBYN PARAAD was identified in the preanesthesia unit. Her left knee was marked as the correct operative side. Informed consent was signed and placed in the chart. The patient was taken to the operating room and placed under anesthesia without complication. A fuchs catheter was placed. A tourniquet was placed on the left thigh. The left lower extremity was prepped and draped in the usual sterile fashion. Preoperative time-out was made to correctly identify the patient, side and site. Appropriate intraoperative antibiotics were given within one hour of incision. Tourniquet was inflated. A midline incision was made and carried sharply down to the extensor mechanism. A new 10 blade was used to make a standard medial parapatellar arthrotomy. The patella was subluxed laterally. Electrocautery was used to dissect soft tissue off the superomedial tibia to the midsagittal plane. The knee was flexed up. The anterior horn of the lateral meniscus and the ACL/PCL were sharply incised. Two checkpoint screws were placed, followed by two pins in the tibia and two pins in the femur. The arrays were attached. The anatomic checkpoints were entered into the [employer] robotic navigation system. The femur and tibia were anatomically mapped and the size/placement of the implants was decided. The robotic tim was used to make the distal femoral cut. The external rotation guide was pinned on the distal femur and the distal femur was sized to a size 6. The size 6 multi-cutting jig was pinned on the distal femur. The oscillating saw was used to make the appropriate 4 chamfer cuts. Next the PCL was completely released. The extramedullary tibial cutting guide was pinned on the proximal tibia and the [place] plane robotic piece was used to decide on the angles of the cut and the slope. The oscillating saw was used to make the proximal tibial cut perpendicular to the mechanical axis of the tibia. The bone was carefully removed. The knee was brought out into full extension. The spacer block was placed and had excellent fit with the knee in full extension. The medial and lateral ligaments were well balanced. The flexion and extension gaps were well balanced. The knee was flexed up. Lamina apparatus operator was placed both medially and laterally. Any remaining meniscus was removed with electrocautery. Curved osteotome was used to remove any posterior osteophytes. The tibial tray and drop ivanna were placed and confirmed a satisfactory tibial cut. The size 6 left narrow femoral trial was impacted onto the distal femur. This trial had excellent fit and stability. The box for the posterior stabilized implant was prepared using a box cut osteotome and a reamer. Next a tibial tray trial and 9 mm insert trial was placed. The knee was taken through a range of motion and had full extension to 130 degrees of flexion. Patellofemoral tracking was satisfactory. The four pins and two screws were carefully removed. The patella was inverted and sized to a size 35. Three peg holes were drilled through the size 35 drill guide. The trial patella was placed and the knee was taken through a range of motion. There was satisfactory patellofemoral tracking. All trials were removed. The tibia was subluxed anteriorly and sized to a size 5. The proximal tibial was prepared with a size 5 keel punch. All bony cut surfaces were irrigated with sterile saline and dried. Final implants were cemented into place starting with the tibia, followed by the femur, and last the patella. A 9 mm insert trial was placed and the knee was brought into full extension. Tourniquet was turned down and the knee was copiously irrigated with sterile saline. Electrocautery was used to obtain meticulous hemostasis. Once the cement had fully cured, the insert trial was removed. Any excess cement was removed from around the hardware and capsule. Final insert chosen was a 9 mm posterior stabilized Butch II articular insert size 5-6. Stability of the insert was checked and noted to be stable. The extensor mechanism was closed using number 1 vicryls. The rest of the incision was closed in a layered fashion using 0 and 2-0 vicryls. The skin was closed using 3-0 nylon suture. Sterile xeroform, 4x4s and webril were used to cover the incision. Gregor wrap and cold pack were used to cover the dressings. The patients anesthesia was reversed without difficulty. She was taken to the PACU in stable condition. Intended weight-bearing will be as tolerated.
[2019-03-28] MEDS: Magnesium Hydroxide LIQ* 30 ML UDC PO SCH (20:29)
[2019-03-28] MEDS: Docusate CAP* 100 MG PO SCH (20:29)
[2019-03-28] MEDS: Atorvastatin* 10 MG TAB PO SCH (20:29)
[2019-03-29] MEDS: traMADol TAB* 50 MG PO SCH ×4 (01:14→19:25)
[2019-03-29] MEDS: Clindamycin 600 MG/D5W BAG(*) 600 MG/50 ML BAG IV SCH ×2 (01:15→07:52)
[2019-03-29] MEDS: oxyCODONE TAB* 5 MG TAB PO PRN ×4 (02:55→21:55)
[2019-03-29] MEDS: oxyCODONE/Acetamin 5/325 MG* TAB PO PRN ×4 (05:52→23:07)
[2019-03-29] MEDS: Cyclobenzaprine TAB* 10 MG PO PRN ×2 (05:52→12:07)
[2019-03-29 07:05] LABS: Hematocrit 35 % (35-47); Hemoglobin 11.8 g/dL (12.0-16.0); Mean Platelet Volume 8.5 fL (7.4-10.4); Platelet Count 212 10^3/uL (150-450)
[2019-03-29] MEDS: Acetaminophen TAB* 325 MG PO SCH ×2 (07:10→14:01)
[2019-03-29 07:20] LABS: BUN/Creatinine Ratio 16.4 (8-20); Calcium 8.6 mg/dL (8.6-10.3); EGFR African American 122.8 (>60); EGFR Non-African American 101.5 (>60); Potassium 4.1 mmol/L (3.5-5.0)
[2019-03-29] MEDS: Docusate CAP* 100 MG PO SCH ×2 (07:55→19:26)
[2019-03-29] MEDS: Apixaban* 2.5 MG TAB PO SCH ×2 (07:55→19:25)
[2019-03-29] MEDS: Vitamin THERAPEUTIC TAB PO SCH (07:55)
[2019-03-29] MEDS: Magnesium Hydroxide LIQ* 30 ML UDC PO SCH ×2 (07:57→19:26)
--- NOTE | 2019-03-29 08:51 | PN ---
Subjective Date of Service: 03/29/19 Interval History: HOSPITALIST PROGRESS NOTE Patient seen and examined at bedside. Care reviewed and d/w Susan Ross RN. She feels well today. Has gotten out of bed more slowly with no symptoms. Pain is well controlled, tolerating diet. Family History: Unchanged from Admission Social History: Unchanged from Admission Past Medical History: Unchanged from Admission Objective Active Medications: Acetaminophen (Tylenol Tab*) 975 mg PO Q8H [facility] Last Admin: 03/29/19 07:10 Dose: Not Given Apixaban (Eliquis*) 2.5 mg PO BID [facility] Last Admin: 03/29/19 07:55 Dose: 2.5 mg Atorvastatin Calcium (Lipitor*) 10 mg PO BEDTIME [facility] Last Admin: 03/28/19 20:29 Dose: 10 mg Bisacodyl (Dulcolax Supp*) [address] DAILY PRN PRN Reason: CONSTIPATION Cyclobenzaprine HCl (Flexeril Tab*) 10 mg PO Q6H PRN PRN Reason: SPASMS Last Admin: 03/29/19 05:52 Dose: 10 mg Diphenhydramine HCl (Benadryl Iv*) 25 mg IV Q6H PRN PRN Reason: PRURITIS Diphenhydramine HCl (Benadryl Po*) 25 mg PO Q6H PRN PRN Reason: PRURITIS Docusate Sodium (Colace Cap*) 100 mg PO BID [facility] Last Admin: 03/29/19 07:55 Dose: 100 mg Lactated Ringer's (Lactated Ringers 1000 Ml Bag*) 1,000 mls @ 100 mls/hr IV PER RATE [facility] Last Admin: 03/28/19 23:20 Dose: 100 mls/hr Clindamycin HCl/Dextrose (Cleocin 600 Mg/50 Ml(*)) 600 mg in 50 mls @ 100 mls/ hr IV Q8H [facility] Stop: 03/29/19 09:29 Last Admin: 03/29/19 07:52 Dose: 100 mls/hr Influenza Virus Vaccine (Fluarix Quad [id number] Syr) 0.5 ml IM .ONCE ONE Stop: 03/29/19 09:01 Last Admin: 03/29/19 07:55 Dose: 0.5 ml Lactulose (Lactulose*) 30 ml PO BID PRN PRN Reason: CONSTIPATION Magnesium Hydroxide (Milk Of Magnesia Liq*) 30 ml PO BID [facility] Last Admin: 03/29/19 07:57 Dose: 30 ml Magnesium Hydroxide (Milk Of Magnesia Liq*) 30 ml PO Q6H PRN PRN Reason: CONSTIPATION Morphine Sulfate (Morphine Inj (Syringe))*) 2 mg IV Q4H PRN PRN Reason: Pain - Unrelieved Multivitamins (Theragran Tab*) 1 tab PO DAILY [facility] Last Admin: 03/29/19 07:55 Dose: 1 tab Ondansetron HCl (Zofran Inj*) 4 mg IV Q6H PRN PRN Reason: NAUSEA Ondansetron HCl (Zofran Odt Tab*) 4 mg PO Q6H PRN PRN Reason: NAUSEA Oxycodone HCl (Roxycodone Tab*) 10 mg PO Q4H PRN PRN Reason: Pain - Breakthrough Last Admin: 03/29/19 02:55 Dose: 10 mg Oxycodone/Acetaminophen (Percocet 5/325 Tab*) 1 tab PO Q4H PRN PRN Reason: PAIN - MODERATE Last Admin: 03/28/19 13:05 Dose: 1 tab Oxycodone/Acetaminophen (Percocet 5/325 Tab*) 2 tab PO Q4H PRN PRN Reason: PAIN - SEVERE Last Admin: 03/29/19 05:52 Dose: 2 tab Polyethylene Glycol/Electrolytes (Miralax*) 17 gm PO DAILY PRN PRN Reason: Constipation Tramadol HCl (Ultram*) 50 mg PO Q6H [facility] Last Admin: 03/29/19 07:55 Dose: 50 mg Trazodone HCl (Desyrel Tab*) 25 mg PO BEDTIME PRN PRN Reason: insomnia Vital Signs - 8 hr 03/29/19 03/29/19 03/29/19 01:14 02:55 03:23 Temperature 97.9 F Pulse Rate 62 Respiratory 16 16 16 Rate Blood Pressure 92/49 (mmHg) O2 Sat by Pulse 98 Oximetry 03/29/19 03/29/19 03/29/19 03:36 04:20 05:36 Temperature Pulse Rate Respiratory 16 16 Rate Blood Pressure 103/60 (mmHg) O2 Sat by Pulse Oximetry 03/29/19 03/29/19 03/29/19 05:52 07:53 07:55 Temperature Pulse Rate Respiratory 16 18 18 Rate Blood Pressure (mmHg) O2 Sat by Pulse Oximetry 03/29/19 03/29/19 08:00 08:37 Temperature 98.4 F Pulse Rate 61 Respiratory 16 16 Rate Blood Pressure 123/63 (mmHg) O2 Sat by Pulse 98 98 Oximetry Oxygen Devices in Use Now: None Appearance: Pleasant middle aged lady lying in bed in NAD Eyes: No Scleral Icterus Ears/Nose/Mouth/Throat: Mucous Membranes Moist Neck: Trachea Midline Respiratory: Symmetrical Chest Expansion and Respiratory Effort, Clear to Auscultation Cardiovascular: RRR - Normal S1 and S2 Abdominal: NL Sounds; No Tenderness; No Distention Extremities: No Edema, - - Cryounit to left knee. Good pulses and capillary refill, sensation intact Neurological: Alert and Oriented x 3, NL Muscle Strength and Tone Result Diagrams: 03/29/19 06:35 03/29/19 06:35 Assess/Plan/Problems-Billing Assessment: Ms Worthington is a 58 yo F who has a h/o HLD and GALINA who is POD#0 from elective L total knee arthroplasty who had a near syncopal episode. - Patient Problems (1) History of arthroplasty of left knee Comment: - Management as per Ortho. (2) Vasovagal near syncope Comment: - Vasovagal in the setting of pain, recent surgery, and straining. - Remains in NSR with no significant arrhythmias. (3) HLD (hyperlipidemia) Comment: - Continue statin. (4) GALINA (obstructive sleep apnea) Comment: - Continue CPAP. (5) DVT prophylaxis Comment: - Apixaban as per Ortho. (6) Full code status Status and Disposition: May be discharged later depending on Ortho's opinion. No further w/u indicated at this time.
[2019-03-29] MEDS ORDERED: Influenza VAC *QUAD* 2019-20* 0.5 ML SYRINGE IM ONE (09:00)
[2019-03-29] MEDS: Morphine INJ* 2 MG/ML 1 ML SYRINGE (TWO MG - NEW SYRINGE VERSION) IV PRN ×4 (09:58→23:08)
[2019-03-29] MEDS: Atorvastatin* 10 MG TAB PO SCH (19:25)
[2019-03-30] MEDS: traMADol TAB* 50 MG PO SCH ×2 (03:09→07:25)
[2019-03-30] MEDS: Acetaminophen TAB* 325 MG PO SCH ×2 (03:10→06:21)
[2019-03-30] MEDS: oxyCODONE TAB* 5 MG TAB PO PRN ×2 (06:05→12:03)
[2019-03-30 06:36] LABS: Hematocrit 36 % (35-47); Hemoglobin 12.1 g/dL (12.0-16.0); Mean Platelet Volume 8.4 fL (7.4-10.4); Platelet Count 202 10^3/uL (150-450)
[2019-03-30] MEDS: Magnesium Hydroxide LIQ* 30 ML UDC PO SCH (07:24)
[2019-03-30] MEDS: Docusate CAP* 100 MG PO SCH (07:25)
[2019-03-30] MEDS: Apixaban* 2.5 MG TAB PO SCH (07:25)
[2019-03-30] MEDS: Vitamin THERAPEUTIC TAB PO SCH (07:25)
[2019-03-30] MEDS: oxyCODONE/Acetamin 5/325 MG* TAB PO PRN (08:29)
--- NOTE | 2019-03-30 09:41 | DS ---
Orthopedic Discharge Summary - Discharge Summary Date of Admission:03/28/19 Date of Discharge: 03/30/19 Date of Surgery: 03/28/19 Attending Orthopedic Provider: Dr. Montague Pre-operative Diagnosis: Degenerative arthritis left knee Operative Procedure: Left total knee arthroplasty Disposition of Patient: home Condition of Patient: stable History: ROBYN PARADA is a 58 year old F with years of increasingly severe left knee pain. Patient has failed conservative management and has elected to undergo a left total knee replacement Hospital Course: ROBYN was admitted to [facility] on 03/28/19. Patient underwent a left total knee arthroplasty without complication followed by a brief recovery in PACU and transfer to the Short Stay Surgical Unit in stable condition. Our hospitalist service, physical therapy and occupational therapy also participated in this patients care. Post-op day 1: patient was alert and in no acute distress. Dressing was clean, dry and intact. Operative extremity dorsiflexion and plantarflexion intact, sensation intact to light touch distally, DP2+. Post-op day two: dressing was changed, incision was clean , dry and intact. Patient was deemed to be medically and orthopedically stable for discharge. Physical therapy goals were met. Home Medications Medication Instructions Recorded Confirmed Type Acetaminophen [Tylenol] 650 mg PO TID PRN 09/11/18 03/28/19 History Atorvastatin* [Lipitor 10 MG*] 10 mg PO BEDTIME 03/28/19 03/28/19 History Apixaban* [Eliquis*] 2.5 mg PO BID #60 tab 03/29/19 Rx Docusate CAP* [Colace Cap*] 100 mg PO BID cap 03/29/19 Rx oxyCODONE/Acetamin 5/325 MG* 1 - 2 tab PO Q4H PRN #70 tab MDD 10 03/29/19 Rx [Percocet 5/325 TAB*] Discharge Instructions following Orthopedic Surgery: Activity: * Weight Bearing as tolerated * Continue physical therapy and occupational therapy exercises as shown Wound care: * OK to shower on post-op day 3, no bathing, swimming, or submerging wound. * Use gentle soap, pat dry. Cover with gauze, PALLAVI wrap or tape. * Visiting home nurse to do wound checks. Call Orthopedic office for: * Increased drainage * Redness * Increased pain * Fever Go to ER with shortness of breath or chest pain. Diet: * Regular diet * Increase fluids and fiber to prevent constipation. * Continue to use stool softeners, call office if no bowel motion within 48 hours. Medications See Home Medication List in your packet for medications that you should take after discharge. DVT Prophylaxis: Eliquis Dosin.5 mg, 1 tab every 12 hours x 30 days Pain Control: Percocet Dosin/325 mg 1-2 tabs by mouth every 4-6 hours as needed for pain. Maximum of 10 tabs per day. Please note that Percocet contains Tylenol (acetaminophen). Maximum daily dose of Tylenol is 4000 mg from all sources. Antibiotics are required prior to any dental work. FOLLOW UP: Follow up with Dr. Montague Within 10-14 days, call for appointment Please call our office with any questions or concerns ([phone])
[2019-03-30] MEDS ORDERED: Bisacodyl SUPP* 10 MG SUPP PR PRN (11:12)
[2019-03-30 11:44] VITALS: BP 130/60
[2019-03-31] MEDS ORDERED: Scopolamine PATCH Remove* 1 NOTE MISC PATCH OFF ONE (06:52)
== END 2019-03-30 12:35 | disposition home health service (06) | DRG 302 ==
LOC: AA 06:12 → SSU 12:53
PROVIDERS: ADMIT Orthopaedic Surgery Adult Reconstructive Orthopaedic Surgery; ATTEND Orthopaedic Surgery Adult Reconstructive Orthopaedic Surgery
PROC: 0SRD069 Replacement of Left Knee Joint with Oxidized Zirconium on Polyethylene Synthetic Substitute, Cemented, Open Approach (ICD-10-PCS; principal; 2019-03-28 07:45)
DX: M17.12 Unilateral primary osteoarthritis, left knee (principal); G47.33 Obstructive sleep apnea (adult) (pediatric); R55 Syncope and collapse; I95.9 Hypotension, unspecified; R00.1 Bradycardia, unspecified; M25.762 Osteophyte, left knee; E78.2 Mixed hyperlipidemia; E66.01 Morbid (severe) obesity due to excess calories; M25.462 Effusion, left knee; E78.00 Pure hypercholesterolemia, unspecified; M54.2 Cervicalgia; G89.4 Chronic pain syndrome; Z90.722 Acquired absence of ovaries, bilateral; Z88.0 Allergy status to penicillin; Z68.33 Body mass index [BMI] 33.0-33.9, adult; Z23 Encounter for immunization; Z82.49 Family history of ischemic heart disease and other diseases of the circulatory system; Z80.0 Family history of malignant neoplasm of digestive organs
CPT/HCPCS: 36415; 80048; 85014; 85018; 85049; 88305; 88311; 90686; 93005; A9270-GY; C1776; G8978-GP-CL; G8979-GP-CI; J1885; J2250; J2270; J2704; J2795; J3010; J3490; J8540

== ENCOUNTER 2019-10-29 11:46 | Emergency (ER) | payer OTHER ==
[2019-10-29 12:22] VITALS: BP 104/46
--- NOTE | 2019-10-29 12:42 | UC ---
Complaint Female HPI - HPI Summary HPI Summary: dysuria x 2 days pain is 5 out 10 , worse with voiding, better with fluid, lower back pain , no fever, no chills, no flank pain - History Of Current Complaint Chief Complaint: UCGU Stated Complaint: UTI Time Seen by Provider: 10/29/19 12:10 Hx Obtained From: Patient Hx Last Menstrual Period: N/A Onset/Duration: Gradual Onset, Lasting Days - 2, Still Present Timing: Constant Severity Initially: Moderate Severity Currently: Moderate Pain Intensity: 4 Character: Burning Aggravating Factor(s): Urination Alleviating Factor(s): Nothing Associated Signs And Symptoms: Negative: Fever, Back Pain, Vaginal Bleeding/ Discharge, Vaginal Discharge, Nausea, Vomiting(# Of Episodes =), Genital Swelling, Genital Blisters, Retained Foregin Body (Specify) - Allergies/Home Medications Allergies/Adverse Reactions: Allergies Allergy/AdvReac Type Severity Reaction Status Date / Time Penicillins AdvReac Intermediate Rash Verified 10/29/19 12:15 Home Medications: Home Medications Acetaminophen [Tylenol] 650 mg PO TID PRN 06/21/19 [History Confirmed 10/29/19] Tramadol HCl 50 mg PO TID PRN MDD 3 06/21/19 [History Confirmed 10/29/19] Meloxicam [Mobic] 15 mg PO SEE INSTRUCTIONS 10/29/19 [History Confirmed 10/29/19 ] Phenazopyridine 200 mg (NF) [Pyridium 200 MG tab *] 200 mg PO TID #6 tab [Rx] Sulfamethox/Trimethoprim DS* [Bactrim DS 800/160 TAB*] 1 tab PO BID #14 tab [Rx] PMH/Surg Hx/FS Hx/Imm Hx Previously Healthy: Yes - Surgical History Surgical History: Yes Surgery Procedure, Year, and Place: VAGINAL RECONSTRUCTION AND OVARIES REMOVED. BLADDER SLING. RECTAL PROLAPSE CORRECTION. L TKR - Family History Known Family History: Positive: None Negative: Diabetes - Social History Alcohol Use: Occasionally Alcohol Amount: 1-2 drinks Substance Use Type: None Smoking Status (MU): Never Smoked Tobacco - Immunization History Most Recent Influenza Vaccination: 03/29/19 Most Recent Tetanus Shot: unsure Most Recent Pneumonia Vaccination: none Review of Systems All Other Systems Reviewed And Are Negative: Yes Genitourinary: Positive: Dysuria, Frequency, Urgency. Negative: Hematuria, Vaginal/Penile Burning, Vaginal/Penile Itching Is Patient Immunocompromised?: No Physical Exam Triage Information Reviewed: Yes Appearance: Well-Appearing, No Pain Distress, Well-Nourished Vital Signs: Initial Vital Signs Temp 97.7 F 10/29/19 12:18 Pulse 63 10/29/19 12:18 Resp 15 10/29/19 12:18 BP 104/46 10/29/19 12:18 Pulse Ox 100 10/29/19 12:18 Vital Signs Reviewed: Yes Eye Exam: Normal Eyes: Positive: Conjunctiva Clear ENT: Positive: Normal ENT inspection, Hearing grossly normal, Pharynx normal Dental Exam: Normal Respiratory: Positive: Chest non-tender, Lungs clear, Normal breath sounds Cardiovascular: Positive: RRR, No Murmur, Pulses Normal Abdomen Description: Positive: Nontender, Soft. Negative: CVA Tenderness (R), CVA Tenderness (L), Distended, Guarding Skin Exam: Normal Complaint Female Dx - Differential Dx/Diagnosis Provider Diagnosis: UTI (urinary tract infection) Discharge ED - Sign-Out/Discharge Documenting (check all that apply): Patient Departure All imaging exams completed and their final reports reviewed: No Studies - Discharge Plan Condition: Stable Disposition: HOME Prescriptions: Phenazopyridine 200 mg (NF) [Pyridium 200 MG tab *] 200 mg PO TID #6 tab Sulfamethox/Trimethoprim DS* [Bactrim DS 800/160 TAB*] 1 tab PO BID #14 tab Patient Education Materials: Urinary Tract Infection in Women (DC) Referrals: Delonte DEAN,Jai Hardy [Primary Care Provider] - If Needed - Billing Disposition and Condition Condition: STABLE Disposition: Home
--- OUTSIDE RECORDS SUMMARY | 2019-10-29 12:42 | XMS REPORT | Continuity of Care Document ---
:1960 External Reference #:[id number] Author Name Carey Montague M.D. 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 Onset: 02/26/2018 Localized, primary osteoarthritis of Carey Montague M.D. Onset: 02/26/2018 the pelvic region and thigh Social History Type Date Description Comments Sex Unknown Tobacco Use Start: Unknown Never Smoked Cigarettes Smoking Status Reviewed: 10/07/19 Never Smoked Cigarettes ETOH Use Currently consumes socially alcohol Tobacco Use Start: Unknown Patient has never smoked Recreational Drug Use Denies Drug Use Exercise Type/Frequency Walks 5 times a week Walks dog, walks at work Exercise Type/Frequency Exercises regularly Allergies, Adverse Reactions, Alerts Active Allergies Reaction Severity Comments Date Penicillin 02/01/2017 Medications Active Medications SIG Qnty Indications Ordering Provider Date Clindamycin HCL take two tabs 2caps Carey Montague, 05/29/2019 300mg one hour prior M.D. Capsules to dental work Tramadol HCL 1 po tid Unknown 50mg Tablets Tylenol as needed for Unknown pain Meloxicam 1 tab by mouth 60tabs Carey Montague, 15mg Tablets as needed M.D. Atorvastatin Calcium unsure of dose Unknown 10mg Tablets Medications Administered in Office Medication SIG Qnty Indications Ordering Provider Date Eveliaomedrol 40MG Carey Montague M.D. 10/07/2019 Injection Depomedrol 40MG Carey Montague M.D. 06/17/2019 Injection Depomedrol 40MG Carey Montague M.D. 03/15/2019 Injection Depomedrol 40MG Carey Montague M.D. 12/10/2018 Injection Depomedrol 40MG Carey Montague M.D. 12/10/2018 Injection Depomedrol 40MG Carey Montague M.D. 09/07/2018 Injection Eveliaomedrol 40MG Carey Montague M.D. 09/07/2018 Injection Eveliaomedrol 40MG Carey Montague M.D. 06/06/2018 Injection Jennyrol 40MG Carey Montague M.D. 06/06/2018 Injection Eveliaomedrol 40MG Carey Montague M.D. 03/16/2018 Injection Depomedrol 40MG Carey Montague M.D. 03/16/2018 Injection Jennyrol 40MG Carey Montague M.D. 03/02/2018 Injection Triamcinolone (Kenalog) Carey Montague M.D. 02/26/2018 Injection Immunizations CPT Code Status Date Vaccine Lot # [id number] Given 07/30/2018 Influenza Virus Vaccine, Quadrivalent, Split, [id number] Preservative Free Vital Signs Date Vital Result Comment 10/07/2019 9:08am Height 66.5 inches 5'6.50" Weight 221.00 lb BP Systolic 128 mmHg BP Diastolic 74 mmHg Respiratory Rate 16 /min Body Temperature 97.3 F Pain Level 5 BMI (Body Mass Index) 35.1 kg/m2 06/17/2019 9:04am Height 66.5 inches 5'6.50" Weight 216.50 lb Heart Rate 98 /min BP Systolic 142 mmHg BP Diastolic 78 mmHg Respiratory Rate 18 /min Body Temperature 97.5 F Pain Level 3 O2 % BldC Oximetry 98 % BMI (Body Mass Index) 34.4 kg/m2 Results Description No Information Available Procedures Date Code Description Status 10/07/2019 Inject/Drain Joint/Bursa Major W/O US Completed 06/17/2019 Inject/Drain Joint/Bursa Major W/O US Completed Medical Devices Description No Information Available Encounters Type Date Location Provider Dx Diagnosis Office Visit 06/17/2019 [facility] Carey Montague, M25.561 Pain in right 8:45a at [place] M.DJon knee M25.461 Effusion, right knee M17.11 Unilateral primary osteoarthritis, right knee Assessments Date Code Description Provider 10/07/2019 M25.561 Pain in right knee Carey Montague M.D. 10/07/2019 M25.461 Effusion, right knee Carey Montague M.D. 10/07/2019 M17.11 Unilateral primary osteoarthritis, right knee Carey Montague M.D. 06/17/2019 M25.561 Pain in right knee Carey Montague M.D. 06/17/2019 M25.461 Effusion, right knee Carey Montague M.D. 06/17/2019 M17.11 Unilateral primary osteoarthritis, right knee Carey Montague M.D. 05/15/2019 Z47.1 Aftercare following joint replacement surgery Carey Montague M.D. 05/15/2019 Z96.652 Presence of left artificial knee joint Carey Montague M.D. 04/22/2019 Z47.1 Aftercare following joint replacement surgery Carey Montague M.D. 04/22/2019 Z96.652 Presence of left artificial knee joint Carey Montague M.D. Plan of Treatment Future Appointment(s):11/01/2019 9:45 am - Tara Packer DNP, RN, C[employer] MACH[employer] MECHANIC-BC at [facility]12/10/2019 12:30 pm - Carey Montague M.D. at [facility] at [id number]/07/2019 - Carey Montague M.D.M25.561 Pain in right kneeFollow up:Follow up: for H&PM25.461 Effusion, right kneeM17.11 Unilateral primary osteoarthritis, right knee Functional Status Description No Information Available Mental Status Description No Information Available Referrals Description No Information Available
--- OUTSIDE RECORDS SUMMARY | 2019-10-29 12:42 | XMS REPORT | Continuity of Care Document ---
:1960 External Reference #:[id number] Author Name Carey Montague M.D. 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 Onset: [...] Provider Date Depomedrol 40MG Carey Montague M.D. 06/17/2019 Injection [...] CPT Code Status Date Vaccine Lot # [id number] Given 07/30/2018 Influenza Virus Vaccine, Quadrivalent, Split, [...] Information Available Procedures Date Code Description Status 10/07/201976535 Inject/Drain Joint/Bursa Major W/O US Completed 06/17/2019 Inject/Drain Joint/Bursa Major W/O US Completed Medical Devices Description No Information Available Encounters Type Date Location Provider Dx Diagnosis Office Visit 06/17/2019 [facility] Carey Montague, M25.561 Pain in right 8:45a at [place] MZbigniew knee M25.461 Effusion, right knee M17.11 Unilateral [...] 9:45 am - Tara Packer DNP, RN, MAKEUP INSTRUCTOR-BC at [facility]12/10/2019 12:30 pm - Carey Montague M.D. at [facility] at [place]ub[place]6010/07/2019 - Carey Montague M.D.M25.561 Pain in right kneeFollow up:Follow up: for H&PM25.461 Effusion, right kneeM17.11 Unilateral primary osteoarthritis, right knee Functional Status Description No Information Available Mental Status Description No Information Available Referrals Description No Information Available
== END 2019-10-29 12:42 | disposition home or self-care (01) ==
LOC: UCCORT 11:46
DX: N39.0 Urinary tract infection, site not specified (principal); Z88.0 Allergy status to penicillin
CPT/HCPCS: 81003; 87077; 87086; 87186

== ENCOUNTER 2019-12-10 08:22 | Inpatient (IN) ==
[~2019-12-10 08:22] MED LIST changes: -Acetaminophen TAB* 325 MG PO ONE; -Buffered Lidocaine 1% SYRIN* 1 ML/SYRINGE INTRADERM ONE; +Clindamycin 900 MG/D5W BAG(*) 900 MG/50 ML BAG IVPB ONE; -Dexamethasone TAB* 4 MG PO ONE; +DiMENhydriNATE IV 50 mg/ml 1 ml VIAL IV PUSH PRN; +Famotidine IV 10 MG/ML 2 ml VIAL (20 mg) IV ONE; -Famotidine IV* 10 MG/ML 2 ML (20 mg) IV ONE; -Gabapentin CAP(*) 300 MG PO ONE; +HYDROmorphone 1 MG/1 ML SYRINGE IV PRN; -Lactated Ringers 1000 ML Bag* 1,000 ML IV SCH; +Lactated Ringers 1000 ml BAG 1,000 ML IV SCH; +Naloxone 0.4 mg VIAL 0.4 mg/ml 1 ml VIAL IV PRN; +Ondansetron ODT 4 mg TAB 4 MG TAB PO ONE; -Ondansetron ODT TAB* 4 MG PO ONE; +Prochlorperazine 5 mg/ml 2 ml VIAL (10 mg) IV PRN; -Tranexamic Acid 1,000 MG in NS 0.9% 50 ML* (outpatient use) IV SCH; -celeCOXIB CAP* 200 MG PO ONE; +fentaNYL 100 mcg/2 ml 50 MCG/ML VIAL IV PRN
[2019-12-10] MEDS ORDERED: Ketamine HCL 50 mg/ml 10 ml VIAL (500 MG) ONE (08:35)
[2019-12-10] MEDS ORDERED: Midazolam 10 mg/10 ml VIAL 1 mg/ml 10 ml VIAL (10 mg) ONE (08:35)
[2019-12-10] MEDS ORDERED: fentaNYL 100 mcg/2 ml 50 MCG/ML VIAL ONE (08:35)
[2019-12-10] MEDS ORDERED: ROPIVACAINE 5 MG/ML 30 ML BTL (0.5%) ONE ×2 (09:12→12:31)
[2019-12-10] MEDS ORDERED: Propofol 10 MG/ML 20 ML BTL ONE (12:31)
[2019-12-10] MEDS ORDERED: Bupivacaine 0.5% SDV PF 30ML VIAL ONE (12:31)
[2019-12-10] MEDS ORDERED: Acetaminophen IV 1 GM/100ML 100 ML ONE (12:31)
[2019-12-10] MEDS ORDERED: oxyCODONE/Acetamin 5/325 mg TAB PO PRN (13:30)
[2019-12-10] MEDS ORDERED: diPHENhydraMINE IV 50 MG/ML 1 ml VIAL (BENADRYL) IV PRN (13:30)
[2019-12-10] MEDS ORDERED: Lactulose 30 ml UDC PO PRN (13:30)
[2019-12-10] MEDS ORDERED: Ondansetron 4 mg VIAL 2 MG/ML 2 ml VIAL IV PRN (13:30)
[2019-12-10] MEDS ORDERED: Magnesium Hydroxide LIQ 30 ML UDC PO PRN (13:30)
[2019-12-10] MEDS ORDERED: Ondansetron ODT 4 mg TAB 4 MG TAB PO PRN (13:30)
[2019-12-10] MEDS ORDERED: diPHENhydraMINE 25 mg TAB PO PRN (13:30)
[2019-12-10] MEDS ORDERED: Lactated Ringers 1000 ml BAG 1,000 ML IV SCH (14:00)
[2019-12-10] MEDS: oxyCODONE/Acetamin 5/325 mg TAB PO PRN ×2 (17:20→21:40)
[2019-12-10] MEDS: Clindamycin 600 MG/D5W BAG(*) 600 MG/50 ML BAG IV SCH (18:05)
[2019-12-10] MEDS: Magnesium Hydroxide LIQ 30 ML UDC PO SCH (21:40)
[2019-12-11] MEDS: Clindamycin 600 MG/D5W BAG(*) 600 MG/50 ML BAG IV SCH ×2 (02:33→10:56)
[2019-12-11] MEDS: oxyCODONE/Acetamin 5/325 mg TAB PO PRN ×3 (02:33→12:32)
[2019-12-11 06:52] LABS: Hematocrit 30 % (35-47); Hemoglobin 10.5 g/dL (12.0-16.0); Mean Platelet Volume 9.2 fL (7.4-10.4); Platelet Count 204 10^3/uL (150-450)
[2019-12-11 08:47] LABS: BUN/Creatinine Ratio 17.5 (8-20); EGFR African American 132.3 (>60); EGFR Non-African American 109.3 (>60)
[2019-12-11] MEDS ORDERED: Vitamin THERAPEUTIC TAB PO SCH (09:00)
[2019-12-11] MEDS: Magnesium Hydroxide LIQ 30 ML UDC PO SCH (10:56)
[2019-12-11 11:20] VITALS: BP 108/56
== END 2019-12-11 14:30 | disposition home or self-care (01) | DRG 302 ==
LOC: OR 08:22 → SSU 13:30
PROVIDERS: ADMIT Physician Assistant; ATTEND Orthopaedic Surgery Adult Reconstructive Orthopaedic Surgery